=== PATIENT | female | born 1960 | race Caucasian/White ===

== ENCOUNTER 2020-11-06 11:19 | Emergency (ER) | payer OTHER, MEDICAID ==
[~2020-11-06] VITALS: Ht 162.6 cm; Wt 75.5 kg
--- NOTE | 2020-11-06 11:21 | NUR ---
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
--- NOTE | 2020-11-06 11:49 | NUR ---
epigastric pain x30 minutes +N/V. states that she has chronic pain, patient screaming in triage. pt in bed in gown, refuses to take her shirt off. cont spo2, bp q 30 min, side rails up x2, call light in reach. iv started with blood draw. Awating md reed
--- NOTE | 2020-11-06 11:50 | NUR ---
warm blanket given
[2020-11-06] MEDS ORDERED: HYDROmorphone 1 MG/ML, 1ML INJ IV ONE (12:00)
[2020-11-06] MEDS ORDERED: ONDANSETRON 2MG/ML, 2ML IVPush ONE (12:00)
[2020-11-06 12:54] LABS: ALANINE AMINOTRANSFERASE 22 U/L (12-78); ALBUMIN 4.3 g/dL (3.4-5.0); ANION GAP 9 mmol/L (5-15); CALCIUM 9.8 mg/dL (8.5-10.1); CHLORIDE 104 mmol/L (98-107); CREATININE 0.73 mg/dL (0.55-1.02)
[2020-11-06 12:56] LABS: ALKALINE PHOSPHATASE 131 U/L (45-117); BILIRUBIN,TOTAL 0.5 mg/dL (0.2-1.0); TOTAL PROTEIN 8.3 g/dL (6.4-8.2)
[2020-11-06 13:06] LABS: MEAN CORPUSCULAR HEMOGLOBIN 25.8 pg (27.0-34.8); MEAN CORPUSCULAR HGB CONC 32.5 g/dL (32.4-35.8); MEAN PLATELET VOLUME 9.3 fL (7.4-10.4); PLATELET COUNT 471 x10^3/uL (130-400); RED BLOOD COUNT 5.26 x10^6/uL (3.82-5.3); RED CELL DISTRIBUTION WIDTH 16.9 % (9.6-15.2)
--- NOTE | 2020-11-06 13:26 | NUR ---
URINE COLLECTED AND SENT TO LAB
[2020-11-06 13:28] LABS: LYMPH#(MANUAL) 3.88 x10^3/uL (1-3.4); LYMPHS% (MANUAL) 17 % (22-44); MONOS#(MANUAL) 0.91 x10^3/uL (0.3-2.7); MONOS% (MANUAL) 4 % (2-9); SEG#(MANUAL) 18.01 x10^3/uL (1.8-6.8); SEGS% (MANUAL) 79 % (42-75)
[2020-11-06 13:29] LABS: <PLATELET ESTIMATE> INCREASED; <PLT MORPHOLOGY> NORMAL PLT MORPH; ANISOCYTOSIS 1+; MICROCYTOSIS 1+
[2020-11-06 13:47] LABS: MICROSCOPIC AUTO
[2020-11-06] MEDS ORDERED: OMNIPAQUE 350 MG/ML, 100ML BOTTLE ONE (14:10)
--- NOTE | 2020-11-06 15:07 | NUR ---
Yudtih RN note: Pt assisted to reposition herself in bed. POC discussed. Pt reports "I feel amazing!" Pt denies other needs.
--- NOTE | 2020-11-06 15:37 | NUR ---
Break RN note: Dr. Pretty at bedside to discuss POC with pt.
[2020-11-06 16:25] LABS: TROPONIN I < 0.015 ng/mL (0.000-0.045)
[2020-11-06 17:29] VITALS: BP 124/74
== END 2020-11-06 17:31 | disposition home or self-care (01) ==
LOC: ED 12:27
DX: R10.13 Epigastric pain (principal); R11.2 Nausea with vomiting, unspecified; I10 Essential (primary) hypertension; K21.9 Gastro-esophageal reflux disease without esophagitis; E78.00 Pure hypercholesterolemia, unspecified
CPT/HCPCS: 36415; 74177; 80053; 81001; 83690; 84484; 85025; 93005; 96374; 96375; 99285; J1170; J2405; Q9967